=== PATIENT | male | born 1960 | race Caucasian/White ===

== ENCOUNTER 2025-07-29 14:04 | Emergency (ER) | payer OTHER ==
[~2025-07-29] VITALS: Ht 188 cm; Wt 74.8 kg
[~2025-07-29 14:04] MED LIST: CEFD300 PO
[2025-07-29] MEDS ORDERED: Trimethoprim/Sulfamethoxazole DS Tab PO ONE (16:20)
[2025-07-29] MEDS ORDERED: CEPH500 PO (16:24)
[2025-07-29] MEDS ORDERED: BACTRIM DS TAB1 EAC1 PO (16:24)
== END 2025-07-29 16:49 | disposition home or self-care (01) ==
LOC: ER 14:04
DX: L03.317 Cellulitis of buttock (principal); Z79.2 Long term (current) use of antibiotics
CPT/HCPCS: 99283; A9270